=== PATIENT | female | born 1995 | race Caucasian/White ===

== ENCOUNTER 2020-08-21 13:05 | Outpatient (CLI) | payer BC ==
[2020-08-21 14:52] VITALS: BP 118/81; PULSE 93; RESP 16; TEMP 98.2
--- NOTE | 2020-08-21 15:06 | US ---
EXAMINATION TYPE: US OB >= 14 wk fetus DATE OF EXAM: 08/21/2020 COMPARISON: None CLINICAL HISTORY: EFW and MINOO post dates TECHNIQUE: OBTA GESTATIONAL AGE / DATING Physician Established: (40 weeks/2 days) EDC: 08/19/2020 Dates by LMP: unknown Dates by First Scan: [facility] here Dates by Current Scan: (38 weeks/1 days) EDC: 09/03/2020 SURVEY IUP: Single PLACENTA: Fundal PREVIA: No Previa MINOO: 18.1 cm Normal CERVICAL LENGTH (transabdominal: norm > 3.0cm): unable to visualize without distended bladder and low lying head BIOMETRY PRESENTATION: Vertex LIE: Longitudinal BPD: 9.3 cm 37 weeks / 4 days HC: 33.2 cm 37 weeks / 6 days AC: 35.2 cm 39 weeks / 1 days FL: 7.6 cm 39 weeks / 0 days ESTIMATED WEIGHT IN GRAMS: 3582 grams ESTIMATED WEIGHT IN LBS/OZ: 7 lbs. 14 oz. WEIGHT PERCENTAGE BASED ON ESTABLISHED DATES: 42% HC/AC: 0.9 Normal FL/AC: 21.7 Normal HEART RATE: 150 bpm RHYTHM: Normal IMPRESSION: Limited scan. Estimated weight 3582 g, amniotic fluid index measured at 18.1 cm
--- NOTE | 2020-08-23 18:06 | P.MSEPDOC ---
Presenting Problems - Arrival Data Date of Arrival on Unit: 08/21/20 Time of Arrival on Unit: 13:05 Mode of Transport: Stretcher - Complaint OB-Reason for Admission/Chief Complaint: NST, Observation/Evaluation Medical History - Information : 1 Para: 0 Term: 0 : 0 Abortions: Spontaneous or Elective: 0 Number of Living Children: 0 - Gestational Age Gestational Age by MICHAEL (wks/days): 40 Weeks and 2 Days Review of Systems - Review of Systems Constitutional: No problems Breast: No problems ENT: No problems Cardiovascular: No problems Respiratory: No problems Gastrointestinal: No problems Genitourinary: No problems Musculoskeletal: No problems Neurological: No problems Skin: No problems Vital Signs - Temperature Temperature: 98.2 F Temperature Source: Temporal Artery Scan - Pulse Right Sitting Brachial Pulse Rate: 93 - Respirations Respiratory Rate: 16 - Blood Pressure Right Arm Blood Pressure: 118/81 Blood Pressure Mean: 93 Blood Pressure Source: Automatic Cuff Medical Screen Scoring (Pre) - Cervical Exam Dilation: Exam Deferred Effacement: Exam Deferred Membranes: Intact - Uterine Contractions Frequency: N/A Duration: N/A Intensity: N/A - Maternal Vital Signs Maternal Temperature: N/A Maternal Blood Pressure: N/A Signs of Preeclampsia: N/A Maternal Respirations: N/A - Maternal Trauma Maternal Trauma: N/A - Assessment - Baby A Baseline FHR: 135 Heart Rate - NICHD Category: Category I (Normal) = 0 NST: Reactive Position: N/A Station: N/A - Total Score - Baby A Total Score - Baby A: 0 - Total Score - Baby B Total Score - Baby B: 0 - Total Score - Baby C Total Score - Baby C: 0 - Level of Risk - Baby A Level of Risk - Baby A: Low (0-5) - Level of Risk - Baby B Level of Risk - Baby B: Low (0-5) - Level of Risk - Baby C Level of Risk - Baby C: Low (0-5) Physician Notification (Pre) - Physician Notified Physician Notified Date: 08/21/20 Physician Notified Time: 14:05 New Order Received: No Disposition - Disposition OB Disposition: Discharge to home, Written follow up instructions reviewed Discharge Date: 08/21/20 Discharge Time: 14:45 I agree with the RN Medical Screening Exam: Yes Case reviewed; plan agreed upon as documented in EMR&OBIX.: Yes Diagnosis: POST-TERM (Ultrasound and NST are reassuring. Follow-up for scheduled induction.)
== END 2020-08-21 14:45 | disposition home or self-care (01) ==
LOC: FBPOP 13:05
PROVIDERS: ATTEND Obstetrics & Gynecology
DX: O48.0 Post-term pregnancy (principal); Z3A.40 40 weeks gestation of pregnancy
CPT/HCPCS: 59025; 76805

== ENCOUNTER 2020-08-23 06:00 | Inpatient (IN) | payer BC ==
--- NOTE | 2020-08-23 06:08 | P.HPOB ---
History of Present Illness H&P Date: 08/23/20 Chief Complaint: Requested induction of labor This patient is a 24-year-old 1 para 0 female estimated date of confinement 08/19/2020 estimated gestational age 40-4/7 weeks gestation who is admitted to labor and delivery for postdates induction of labor. Patient's pr enatal care is complicated by late to seek care. Patient is living in [place] and had her first visit at approximately 31 weeks. Patient that time did not know she was went to [facility] to get an IUD placed and was told she was approximately 31 weeks . Patient subsequently transferred to [place] at about 35 weeks. otherwise been uncomplicated. Review of Systems Genitourinary: Reports Menstruation: Reports amenorrhea Past Medical History Past Medical History: No Reported History Past Surgical History: No Surgical Hx Reported Past Anesthesia/Blood Transfusion Reactions: No Reported Reaction Past Psychological History: No Psychological Hx Reported Smoking Status: Never smoker Past Alcohol Use History: None Reported Past Drug Use History: None Reported Medications and Allergies Home Medications Medication Instructions Recorded Confirmed Type Pnv No.95/Ferrous Fum/Folic AC 1 tab PO DAILY 08/21/20 08/21/20 History [ Multivitamin Tablet] Allergies Allergy/AdvReac Type Severity Reaction Status Date / Time No Known Allergies Allergy Verified 08/21/20 13:17 Exam - OBG Physical Exam Abdomen: bowel sounds normal, no diffuse tenderness, no bruit present, no guarding noted, no hepatomegaly, no splenomegaly, no mass Vulva: both: normal Vagina: normal moisture Cervix: no lesion (Cervix is 2 cm on effaced in the office.), no discharge Uterus: enlarged (Fundal height 38 cm) Results blood work shows she is A positive, rubella immune, RPR nonreactive, hepatitis B negative, cystic fibrosis screen was negative, group B strep was negative, Glucola was normal, most recent ultrasound put estimated weight of 7 lbs. 14 oz. Assessment and Plan Assessment: This is a 24-year-old 1 para 0 female 40-4/7 weeks gestation who is admitted to labor and delivery for induction of labor secondary to postdates . Plan is induction of labor and anticipate vaginal delivery. (1) Postmaturity , 40-42 weeks gestation Status: Acute Code(s): O48.0 - POST-TERM SNOMED Code(s): 63425190697970
[2020-08-23] MEDS ORDERED: CARBOPROST TROMETHAMINE 250 MCG/ML 1 ML AMP IM PRN (06:45)
[2020-08-23] MEDS ORDERED: OXYTOCIN 10 UNIT/ML 1 ML VIAL IM PRN (06:45)
[2020-08-23] MEDS ORDERED: LIDOCAINE 0.5% (PF) 5 MG/ML (50 ML SDV) SQ PRN (06:45)
[2020-08-23] MEDS ORDERED: OXYTOCIN 30 UNITS/500 ML NS 30 UNIT in SALINE 1 500ML.BAG IV SCH ×2 (06:45→12:45)
[2020-08-23] MEDS ORDERED: TERBUTALINE 1 MG/ML VIAL SQ PRN (06:45)
[2020-08-23] MEDS ORDERED: METHYLERGONOVINE 0.2 MG/ML 1 ML AMP IM PRN (06:45)
[2020-08-23] MEDS: LACTATED RINGERS 1,000 ML IV SCH ×5 (06:55→21:16)
[2020-08-23 07:19] LABS: Basophils % (A) 0 %; Eosinophils # (A) 0.1 k/uL (0-0.7); Eosinophils % (A) 2 %; HCT 36.1 % (34.0-46.0); HGB 12.1 gm/dL (11.4-16.0); Lymphocytes % (A) 22 %; MCH 28.2 pg (25.0-35.0); MCHC 33.5 g/dL (31.0-37.0); Mean Platelet Volume 9.7; Monocytes # (A) 0.3 k/uL (0-1.0); Monocytes % (A) 4 %; Neutrophils # (A) 6.4 k/uL (1.3-7.7); Neutrophils % (A) 71 %; Platelet Count 214 k/uL (150-450); RDW 14.7 % (11.5-15.5)
[2020-08-23] MEDS ORDERED: fentaNYL (PF) 50 MCG/ML 5 ML AMP ONE (09:36)
[2020-08-23] MEDS ORDERED: ROPIVACAINE 5MG/ML 20ML VIAL ONE (09:36)
[2020-08-23] MEDS ORDERED: SODIUM CHLORIDE 0.9% 100 ML BAG ONE (09:36)
[2020-08-23] MEDS ORDERED: CITRIC ACID-SODIUM CITRATE 15 ML CUP PO ONE (11:46)
[2020-08-23] MEDS ORDERED: ONDANSETRON 4 MG/2 ML VIAL ONE (11:58)
[2020-08-23] MEDS ORDERED: ACETAMINOPHEN IV (For NPO) 1,000 MG/100 ML VIAL ONE (11:58)
[2020-08-23] MEDS ORDERED: KETOROLAC 15 MG/ML 1 ML VIAL ONE (11:58)
[2020-08-23] MEDS ORDERED: OXYTOCIN 10 UNIT/ML 1 ML VIAL ONE (11:58)
[2020-08-23] MEDS ORDERED: MORPHINE SULFATE (PF) 0.3 MG/0.3 ML SYR ONE (11:58)
[2020-08-23] MEDS ORDERED: DEXAMETHASONE SOD PHOSPHATE 10 MG/ML 1 ML VIAL ONE (11:58)
[2020-08-23] MEDS ORDERED: METOCLOPRAMIDE 5 MG/ML 2 ML VIAL IVP PRN (12:35)
[2020-08-23] MEDS ORDERED: NALOXONE 0.4 MG/ML 1 ML VIAL IV PRN (12:35)
[2020-08-23] MEDS ORDERED: LANOLIN CREAM 5 GM TUBE TOPICAL PRN (12:35)
[2020-08-23] MEDS ORDERED: diphenhydrAMINE 50 MG/ML 1 ML VIAL IVP PRN (12:35)
[2020-08-23] MEDS ORDERED: ZOLPIDEM 5 MG TAB PO PRN (12:35)
[2020-08-23] MEDS ORDERED: SIMETHICONE 80 MG CHEWABLE PO PRN (12:35)
[2020-08-23] MEDS ORDERED: ONDANSETRON 4 MG/2 ML VIAL IVP PRN (12:35)
[2020-08-23] MEDS ORDERED: diphenhydrAMINE 25 MG CAP PO PRN (12:35)
--- NOTE | 2020-08-23 12:46 | P.OP ---
Date of Procedure: 08/23/20 Preoperative Diagnosis: #1: 40-4/7 week intrauterine . #2: Nonreassuring heart tones remote from delivery. Postoperative Diagnosis: #1: Same. #2: Os with posterior presentation. #3: Nuchal cord 1 Procedure(s) Performed: Primary low transverse section Anesthesia: epidural Surgeon: Stevie Gordon Tank Car Loader #1: Marito Parmar Estimated Blood Loss (ml): 500 Pathology: other (Placenta) Condition: stable Disposition: floor Indications for Procedure: Please see dictated H&P for intimate details of this patient's admission. In brief summary this is a pleasant 24-year-old 1 para 0 female 40-4/7 weeks gestation initially admitted for induction of labor found to be in early labor. On admission patient's 4 cm dilated has artificial rupture membranes for her fluid. Patient's labor is augmented with Pitocin. She progresses and at 6 cm she does receive an epidural for pain control. Patient thereafter does have some bradycardia which resolved with position changes and, discontinuing the Pitocin in the usual resuscitative measures. Patient progresses to about 7-8 cm and unfortunately continues to have repetitive variable decelerations and another episode of bradycardia to the 90s for about 4 minutes. At that time I recommend she proceed with immediate section. Patient understands this surgery and risks and risks of infection, bleeding, possible injury to bowel, bladder, vessels, and/or other organs. All the patient's questions are answered written consent is obtained. Operative Findings: This is a vigorous viable male Apgars 8 and 9 delivery time was 1205 hrs. Infant was straight occiput posterior presentation nuchal cord 1 Description of Procedure: This patient has a Bruce catheter placed to straight drain. She is quickly taken to the operating room where the epidural is dosed up and a sufficient level surgery. She has abdominal prep and drape at that time. Scalpels and taken Pfannenstiel skin incision is then made. A second scalpel is taken down the fascia and the fascia scored with a knife. Fascial incision extended bilaterally using the Amaral scissors. Fascia is dissected off the rectus muscles. Rectus muscles are the peritoneum was identified and entered sharply. Peritoneal incision extended superior and inferior without difficulty. Bladder blade is then placed. Scalpels and taken and a low transverse uterine incision is made there is loss of clear fluid. This incision extended bluntly. Infant was guided through the incision with fundal pressure. Straight occiput posterior presentation. Mouth and nares are bulb suctioned. There is a nuchal cord 1 which is reduced. With good fundal pressure we then have deliver the rest of this infant's body this is a vigorous viable male infant Apgars are 8 and 9 delivery time is 1205 hrs. After delivery of the the umbilical cord is doubly clamped and cut appears to be trivascular. Placenta is then manually extracted intact. Uterus is then externalized and uterine incision is then demarcated with Butt clamps. Uterine incision closed in 0 Vicryl running locked fashion 2 layers. Excellent hemostasis is noted bladder perito neum was then reapproximated using a 3-0 Vicryl. Excess fluid is removed from the abdomen and pelvis. Uterus, tubes, ovaries appear normal for term gestation. The parietal peritoneum was identified and closed using 0 Vicryl running fashion. Rectus muscles are reapproximated in 0 Vicryl interrupted fashion. Fascial incision is then closed using 0 PDS. Fascial incision is intact and hemostatic. Subcutaneous tissues and closed using a 3-0 Vicryl. Skin is and closed using clarita. All counts are correct 3. There are no complications. Infant and mother are taken to the birthing suite in satisfactory condition.
[2020-08-23] MEDS: ACETAMINOPHEN TAB 500 MG TAB PO PRN ×2 (17:23→23:56)
[2020-08-23] MEDS: KETOROLAC 15 MG/ML 1 ML VIAL IVP PRN (18:11)
[2020-08-23] MEDS: SENNOSIDES-DOCUSATE SODIUM 1 EACH TAB PO SCH (21:26)
[2020-08-24] MEDS: KETOROLAC 15 MG/ML 1 ML VIAL IVP PRN ×2 (04:47→11:55)
[2020-08-24 06:13] LABS: Basophils % (A) 0 %; Eosinophils % (A) 0 %; HCT 31.3 % (34.0-46.0); Lymphocytes # (A) 1.4 k/uL (1.0-4.8); Lymphocytes % (A) 12 %; MCH 26.8 pg (25.0-35.0); MCHC 31.7 g/dL (31.0-37.0); MCV 84.6 fL (80.0-100.0); Mean Platelet Volume 11.3; Monocytes # (A) 0.4 k/uL (0-1.0); Monocytes % (A) 4 %; Neutrophils % (A) 83 %; Platelet Count 175 k/uL (150-450); WBC 10.9 k/uL (3.8-10.6)
[2020-08-24 06:14] LABS: HGB 9.9 gm/dL (11.4-16.0)
--- NOTE | 2020-08-24 06:23 | P.PNOBGPC ---
Subjective - Subjective Patient reports: Reports appetite normal, Reports voiding normally, Reports pain well controlled, Reports ambulating normally : doing well Objective - Vital Signs Latest vital signs: Vital Signs Temp Pulse Resp BP Pulse Ox 08/24/20 05:03 98.0 F 69 18 103/57 97 08/23/20 23:50 97.7 F 62 16 119/70 99 08/23/20 20:10 97.7 F 66 16 103/64 97 08/23/20 16:00 98.0 F 63 16 106/66 08/23/20 14:31 63 16 119/68 97 08/23/20 14:01 68 16 113/75 97 08/23/20 12:46 78 16 122/58 99 08/23/20 12:35 99 08/23/20 12:31 96.9 F L 83 16 117/56 96 08/23/20 06:46 98.6 F 76 14 127/84 100 Intake and Output 08/23/20 08/23/20 08/24/20 14:59 22:59 06:59 Intake Total 3000 Output Total 780 1200 1000 Balance 2220 -1200 -1000 Intake: IV 3000 Output: Urine 1200 1000 Uretheral (Bruce) 1200 Estimated Blood Loss 780 Other: Voiding Method Indwelling Catheter Indwelling Catheter # Voids 1 - Exam Lungs: bilateral: normal Chest: Normal S1, Normal S2 Extremities: Present: normal Abdomen: Present: normal appearance, soft. Absent: distention, tenderness Incision: Present: normal, dry, intact Uterus: Present: normal, firm - Labs Labs: Abnormal Lab Results - Last 24 Hours (Table) 08/24/20 Range/Units 05:36 WBC 10.9 H (3.8-10.6) k/uL RBC 3.70 L (3.80-5.40) m/uL Hgb 9.9 L D (11.4-16.0) gm/dL Hct 31.3 L (34.0-46.0) % Neutrophils # 9.0 H (1.3-7.7) k/uL Assessment and Plan Assessment: Postoperative day #1. Patient is resting without complaints. Vital signs are stable and she is afebrile. Uterus is firm nontender and her incision is intact and dry. Hemoglobin today is 9.9. Patient's tolerating clear liquids and urinating without difficulty. Plan is to continue ambulation, allow the patient to shower, and advance regular diet. (1) Postmaturity , 40-42 weeks gestation Current Visit: No Status: Acute Code(s): O48.0 - POST-TERM [facility] [place] [facility] Code(s): 16843556056633
[2020-08-24] MEDS: LACTATED RINGERS 1,000 ML IV SCH (06:58)
[2020-08-24] MEDS: SENNOSIDES-DOCUSATE SODIUM 1 EACH TAB PO SCH ×2 (07:32→20:54)
--- NOTE | 2020-08-24 07:49 | P.PN ---
Progress Note - Text Progress Note Date: 08/24/20 (916) Anesthesia Postop day 1 Subjective: Status Post section with Duramorph. Patient seen and examined. Doing well without complaint. VAS 2 out of 10. On nausea, vomiting, or pruritus. Afebrile. Gross lower extremity strength intact. . Without apparent anesthetic complications. Objective: Vital signs reviewed Heart: Regular Rate Lungs: Good chest excursion Abdomen: Appears nondistended Assessment: Status post with Duramorph postop day 1 Plan: Continue current care with your medical management.
[2020-08-24 08:22] VITALS: RESP 16
[2020-08-24] MEDS: ACETAMINOPHEN TAB 500 MG TAB PO PRN ×3 (10:25→23:37)
[2020-08-24] MEDS: IBUPROFEN 600 MG TAB PO PRN (18:12)
[2020-08-25 00:22] VITALS: PULSE 86
[2020-08-25] MEDS: IBUPROFEN 600 MG TAB PO PRN ×2 (02:33→08:39)
[2020-08-25] MEDS: ACETAMINOPHEN TAB 500 MG TAB PO PRN (05:31)
--- NOTE | 2020-08-25 06:00 | P.PNOBGPC ---
Subjective - Subjective Patient reports: Reports appetite normal, Reports voiding normally, Reports pain well controlled, Reports ambulating normally : doing well Objective - Vital Signs Latest vital signs: Vital Signs Temp Pulse Resp BP Pulse Ox 08/25/20 00:00 97.8 F 86 16 113/72 98 08/24/20 20:00 98.3 F 82 16 110/70 100 08/24/20 16:00 98.1 F 78 16 109/71 96 08/24/20 12:00 97.7 F 85 16 114/71 99 08/24/20 08:00 98.3 F 76 16 102/58 97 Intake and Output 08/24/20 08/24/20 08/25/20 14:59 22:59 06:59 Intake Total 500 Balance 500 Intake: Oral 500 Other: Voiding Method Indwelling Catheter # Voids 4 1 1 - Exam Lungs: bilateral: normal Chest: Normal S1, Normal S2 Extremities: Present: normal Abdomen: Present: normal appearance, soft. Absent: distention, tenderness Incision: Present: normal, dry, intact Uterus: Present: normal, firm - Labs Labs: Abnormal Lab Results - Last 24 Hours (Table) 08/24/20 Range/Units 05:36 WBC 10.9 H (3.8-10.6) k/uL RBC 3.70 L (3.80-5.40) m/uL Hgb 9.9 L D (11.4-16.0) gm/dL Hct 31.3 L (34.0-46.0) % Neutrophils # 9.0 H (1.3-7.7) k/uL Assessment and Plan Assessment: Postoperative day #2. Patient is resting without complaints wishes to go home. Vital signs are stable she is afebrile. Uterus is firm nontender and her incision is intact and dry. My impression is a normal post operative course. Plan is to continue routine postoperative care and discharge home later today (1) Postmaturity , 40-42 weeks gestation Current Visit: No Status: Acute Code(s): O48.0 - POST-TERM SNOMED Code(s): 00078742608374
--- NOTE | 2020-08-25 06:10 | P.DS ---
Providers Date of admission: 08/23/20 06:33 Expected date of discharge: 08/25/20 Attending physician: Stevie Gordon Primary care physician: Stated None - Discharge Diagnosis(es) (1) Postmaturity , 40-42 weeks gestation Current Visit: No Status: Acute Hospital Course: Please see dictated H&P for intimate details of this patient's admission. Brief summary this is a 24-year-old 1 para 0 female 40-4/7 weeks gestation admitted to labor and delivery for induction of labor section and found to be in active labor. Patient's subsequent was on have a primary low transverse section for nonreassuring heart tones and nuchal cord. Please see dictated operative note. Postoperative and 2 patient is doing well felt to be stable for discharge home follow up with me in 1 week. Procedures: Primary low transverse section Patient Condition at Discharge: Good Plan - Discharge Summary New Discharge Prescriptions: New Ibuprofen [Motrin] 600 mg PO Q6H PRN #30 tab PRN Reason: Pain oxyCODONE HCL [OxyIR] 5 mg PO Q4HR PRN #18 tab PRN Reason: Pain Scale 4 - 6 No Action Pnv No.95/Ferrous Fum/Folic AC [ Multivitamin Tablet] 1 tab PO DAILY Discharge Medication List Pnv No.95/Ferrous Fum/Folic AC [ Multivitamin Tablet] 1 tab PO DAILY 08/21/20 [History] Ibuprofen [Motrin] 600 mg PO Q6H PRN #30 tab 08/25/20 [Rx] oxyCODONE HCL [OxyIR] 5 mg PO Q4HR PRN #18 tab 08/25/20 [Rx] Follow up Appointment(s)/Referral(s): Stevie Gordon MD [STAFF PHYSICIAN] - 10/03/20 11:15 am (Please see me in 1 week for an incision check as well.) Patient Instructions/Handouts: (DC) Activity/Diet/Wound Care/Special Instructions: No strenuous activity or heavy lifting for 6 weeks. No intercourse or anything per vagina for 6 weeks. Please call if any fever, chills, excessive vaginal bleeding, and/or abdominal pain. Discharge Disposition: HOME SELF-CARE
[2020-08-25] MEDS: SENNOSIDES-DOCUSATE SODIUM 1 EACH TAB PO SCH (08:39)
[2020-08-25 08:43] VITALS: BP 107/69; TEMP 97.6
== END 2020-08-25 14:45 | disposition home or self-care (01) | DRG 788 ==
LOC: 4FBP 06:33
PROVIDERS: ADMIT Obstetrics & Gynecology; ATTEND Obstetrics & Gynecology
PROC: 10D00Z1 Extraction of Products of Conception, Low, Open Approach (ICD-10-PCS; principal; 2020-08-23 06:00)
DX: O48.0 Post-term pregnancy (principal); L29.9 Pruritus, unspecified; O69.81X0 Labor and delivery complicated by cord around neck, without compression, not applicable or unspecified; O76 Abnormality in fetal heart rate and rhythm complicating labor and delivery; Z37.0 Single live birth; Z3A.40 40 weeks gestation of pregnancy
CPT/HCPCS: 85025; 86850; 86900; 86901; 88307

== ENCOUNTER 2022-06-14 13:06 | Inpatient (IN) | payer BC ==
--- NOTE | 2022-06-18 07:55 | P.HPOB ---
History of Present Illness H&P Date: 06/18/22 Chief Complaint: Postdates induction, desires This patient is a pleasant 26 yr female EDC 06/14/2022 estimated gestational age 40 5/7 weeks who presents to L&D for postdates induction of labor. Patient had a previous section for non-reassuring FHTs/OP presentation and desires trial of . care has been uncomplicated otherwise. Review of Systems Genitourinary: Reports Menstruation: Reports amenorrhea Past Medical History Past Medical History: No Reported History Additional Past Medical History / Comment(s): 1st had CS at 7 cm for NR FHT, OP and nuchal cord. History of Any Multi-Drug Resistant Organisms: None Reported Past Surgical History: Section Past Anesthesia/Blood Transfusion Reactions: No Reported Reaction Past Psychological History: Anxiety, Depression Additional Psychological History / Comment(s): not medicated, resolved at this time Smoking Status: Never smoker Past Alcohol Use History: None Reported Past Drug Use History: None Reported - Past Family History Mother Family Medical History: No Reported History Medications and Allergies Home Medications Medication Instructions Recorded Confirmed Type Pnv No.95/Ferrous Fum/Folic AC 1 tab PO DAILY 08/21/20 08/23/20 History [ Multivitamin Tablet] Ibuprofen [Motrin] 600 mg PO Q6H PRN #30 tab 08/25/20 Rx oxyCODONE HCL [OxyIR] 5 mg PO Q4HR PRN #18 tab 08/25/20 Rx Allergies Allergy/AdvReac Type Severity Reaction Status Date / Time No Known Allergies Allergy Verified 08/23/20 06:45 Exam - OBG Physical Exam Abdomen: bowel sounds normal, no diffuse tenderness, no bruit present, no guarding noted, no hepatomegaly, no splenomegaly, no mass Vulva: both: normal Vagina: normal moisture, no discharge Cervix: no lesion (Cervix in the office was 2cm.), no discharge Results Labs: A positive, Rubella Immune, YSO-OrpX-PVS neg, Toxo neg, GBS was negative. Ultrasound at 35 wks showed EFW 6#5oz (75-90%) normal. Glucola 96. Received Tdap 05/30/2022. Assessment and Plan Assessment: This is a pleasant 26 yr female estimated gestational age 40 5/7 weeks who presents to L&D for requested induction of labor. She has had a previous section and has requested trial of this . We have discussed the benefits and risks of this in detail, including the risks of uterine rupture, bleeding, possible maternal/ compromise and she wishes to proceed. Plan is AROM and Pitocin induction of labor per protocol. (1) Previous delivery affecting Status: Acute Code(s): O34.219 - MATERNAL CARE FOR UNSP TYPE SCAR FROM PREVIOUS DEL SNOMED Code(s): 338503706 (2) Elective induction of labor planned Status: Acute Code(s): UUS8384 - SNOMED Code(s): 837000077 (3) Postmaturity , 40-42 weeks gestation Status: Acute Code(s): O48.0 - POST-TERM SNOMED Code(s): 98223248676091
[2022-06-19] MEDS ORDERED: METHYLERGONOVINE 0.2 MG/ML 1 ML AMP IM PRN (06:33)
[2022-06-19] MEDS ORDERED: LIDOCAINE 0.5% (PF) 5 MG/ML (50 ML SDV) SQ PRN (06:33)
[2022-06-19] MEDS ORDERED: OXYTOCIN 10 UNIT/ML 1 ML VIAL IM PRN (06:33)
[2022-06-19] MEDS ORDERED: TERBUTALINE 1 MG/ML VIAL SQ PRN (06:33)
[2022-06-19] MEDS ORDERED: OXYTOCIN 30 UNITS/500 ML NS 30 UNIT in SALINE 1 500ML.BAG IV SCH (06:33)
[2022-06-19] MEDS: LACTATED RINGERS 1,000 ML IV SCH ×3 (06:38→15:31)
[2022-06-19 07:12] LABS: Anisocytosis Slight; Basophils % (A) 1 %; Eosinophils # (A) 0.2 k/uL (0-0.7); Eosinophils % (A) 2 %; HCT 40.6 % (34.0-46.0); HGB 13.2 gm/dL (11.4-16.0); Lymphocytes # (A) 2.2 k/uL (1.0-4.8); Lymphocytes % (A) 25 %; MCH 28.3 pg (25.0-35.0); MCHC 32.6 g/dL (31.0-37.0); MCV 86.9 fL (80.0-100.0); Mean Platelet Volume 9.7; Monocytes # (A) 0.4 k/uL (0-1.0); Monocytes % (A) 4 %; Neutrophils # (A) 5.8 k/uL (1.3-7.7); Neutrophils % (A) 67 %; Platelet Count 224 k/uL (150-450); RBC 4.67 m/uL (3.80-5.40); RDW 16.8 % (11.5-15.5); WBC 8.7 k/uL (3.8-10.6)
[2022-06-19] MEDS ORDERED: diphenhydrAMINE 25 MG CAP PO PRN (17:56)
[2022-06-19] MEDS ORDERED: ZOLPIDEM 5 MG TAB PO PRN (17:56)
[2022-06-19] MEDS ORDERED: diphenhydrAMINE 50 MG CAP PO PRN (17:56)
[2022-06-19] MEDS ORDERED: diphenhydrAMINE 50 MG/ML 1 ML VIAL IVP PRN ×2 (17:56)
[2022-06-19] MEDS ORDERED: SIMETHICONE 80 MG CHEWABLE PO PRN (17:56)
[2022-06-19] MEDS ORDERED: BENZOCAINE/MENTHOL SPRAY 1 GM/SPRAY AEROSOL TOPICAL PRN (17:56)
[2022-06-19] MEDS ORDERED: LANOLIN CREAM 5 GM TUBE TOPICAL PRN (17:56)
[2022-06-19] MEDS ORDERED: HYDROCORTISONE 2.5% RECTAL CREAM 30 GM TUBE RECTAL PRN (17:56)
[2022-06-19] MEDS: IBUPROFEN 600 MG TAB PO PRN (18:48)
--- NOTE | 2022-06-19 18:51 | P.PROBDLV ---
Vaginal Delivery Note - . Vaginal Delivery Note: Normal vaginal delivery (vaginal after ) of a viable female infant Apgars 9 and 9. Please see dictated H&P for intimate details of this patient's admission. In brief summary this is a pleasant 26-year-old 2 para 1 female estimated gestational age 40-5/7 weeks who presents to labor and delivery requesting trial of . Patient's first resulted in a section secondary to nonreassuring heart tones. On admission patient is approximately 2 cm dilated. She is artificial rupture membranes for clear fluid. Labor is induced with Pitocin per protocol. She does get uncomfortable and does request an epidural for pain control. Patient's labor progresses adequately and she gets to complete. Patient gets complete at around 1534 hrs. Patient pushes for approximately 1 hour. She pushes the head to the perineum. Perineum is quite edematous. I support the posterior perineum and we have controlled delivery of the 's head over the intact perineum. 's head is right occiput anterior presentation. At this time there is evidence of a "turtle sign" and the head is flush to the perineum. Mouth and nares are bulb suctioned. There is no evidence of a nuchal cord. Due to concern for shoulder dystocia, patient is placed intimate Oneil positions/maneuver. She is instructed to breathe at this time. The shoulder does not release. At this time we did call for help and the nurse begans suprapubic pressure. Patient again was instructed to breathe during this time. After multiple attempts with suprapubic pressure, the anterior shoulder does release. This facilitates the posterior shoulder as well and it is rotated in a clockwise fashion. This does achieve delivery atraumatically. Total time of the shoulder dystocia is estimated 2 minutes. This is a vigorous viable female infant Apgars were 9 and 9 delivery time was 1635 hrs. has spontaneous respiration and good cry and grossly appears normal. The umbilical cord was immediately clamped and cut and the infant is then taken over to the warmer for assessment. Inspection of the 's upper extremities shows no defects or deficits and excellent/normal grasp. There is also no evidence of clavicle fracture. After delivery of the infant, the placenta spontaneously delivered intact. Inspection of the perineum shows a to be quite edematous there is a second-degree laceration without extension. Using a 3-0 Vicryl the second-degree lacerations repaired as best as possible in a running fashion. Excellent reapproximation is noted. Bleeding appears normal as well. All counts are correct 3. Delivery is complicated by a shoulder dystocia (as above) without sequela, otherwise no complications. Patient and family were counseled that if she had future delivery she would need a section for delivery.
[2022-06-19] MEDS: SENNOSIDES-DOCUSATE SODIUM 1 EACH TAB PO SCH (20:32)
[2022-06-19] MEDS: ACETAMINOPHEN TAB 325 MG TAB PO PRN (20:33)
[2022-06-20] MEDS: IBUPROFEN 600 MG TAB PO PRN ×4 (01:21→21:01)
[2022-06-20] MEDS: ACETAMINOPHEN TAB 325 MG TAB PO PRN ×3 (03:39→18:23)
--- NOTE | 2022-06-20 05:49 | P.PNOBGVD ---
Subjective - Subjective Patient reports: Reports appetite normal, Reports voiding normally, Reports pain well controlled, Reports ambulating normally : doing well Objective - Latest Vital Signs Latest vital signs: Vital Signs Temp Pulse Resp BP Pulse Ox 06/20/22 04:00 98.3 F 77 14 95/53 96 06/20/22 00:00 98 F 103 H 16 107/66 97 06/19/22 19:06 98.1 F 92 16 121/73 06/19/22 18:36 129 H 16 108/76 06/19/22 18:06 96 16 106/70 06/19/22 17:51 121 H 16 112/76 06/19/22 17:36 98.5 F 113 H 16 113/69 06/19/22 17:21 118 H 16 106/61 06/19/22 17:06 98.5 F 122 H 16 121/67 99 06/19/22 06:32 97.3 F L 109 H 17 121/86 100 Intake and Output 06/19/22 06/19/22 06/20/22 14:59 22:59 06:59 Intake Total 1187.0 Output Total 750 Balance 437.0 Intake: IV 1000 Invasive Line 1 1000 Intake, IV Titration 187.0 Amount Oxytocin 30 Units/500 ml 187.0 Ns 30 unit In Saline 1 500ml.bag @ Per Protocol IV .Q0M [facility] Rx#:[id number] Output: Estimated Blood Loss 200 Output, Quantitative 550 Blood Loss Other: # Voids 1 1 - Exam Lungs: bilateral: normal Chest: Normal S1, Normal S2 Extremities: Present: normal Abdomen: Present: normal appearance, soft Uterus: Present: normal, firm - Labs Labs: Abnormal Lab Results - Last 24 Hours (Table) 06/19/22 Range/Units 06:33 RDW 16.8 H (11.5-15.5) % Assessment and Plan Assessment: day #1. Patient is doing well with had 2 episodes where she was lightheaded getting up to shower. Vital signs are stable she is afebrile. Uterus is firm nontender and she is having normal lochia. I examined her bottom and it is much less swelling. Baby is doing well. Plan today is to continue routine care, we'll check a CBC, and evaluated for discharge tomorrow. I did ask her to stay today to watch her closely until then. (1) Previous delivery affecting Current Visit: No Status: Acute Code(s): O34.219 - MATERNAL CARE FOR UNSP TYPE SCAR FROM PREVIOUS DEL SNOMED Code(s): 508149060 (2) Elective induction of labor planned Current Visit: No Status: Acute Code(s): DPL8768 - SNOMED Code(s): 295774638 (3) Postmaturity , 40-42 weeks gestation Current Visit: No Status: Acute Code(s): O48.0 - POST-TERM SNOMED Code(s): 06395506550592
[2022-06-20 06:28] LABS: Anisocytosis Slight; Basophils % (A) 0 %; Eosinophils # (A) 0.1 k/uL (0-0.7); Eosinophils % (A) 1 %; Lymphocytes # (A) 1.9 k/uL (1.0-4.8); Lymphocytes % (A) 14 %; MCH 27.9 pg (25.0-35.0); MCHC 31.9 g/dL (31.0-37.0); MCV 87.5 fL (80.0-100.0); Mean Platelet Volume 9.8; Monocytes # (A) 0.6 k/uL (0-1.0); Monocytes % (A) 4 %; Neutrophils # (A) 10.6 k/uL (1.3-7.7); Neutrophils % (A) 79 %; Platelet Count 208 k/uL (150-450); RBC 3.66 m/uL (3.80-5.40); WBC 13.4 k/uL (3.8-10.6)
[2022-06-20 06:50] LABS: HGB 10.2 gm/dL (11.4-16.0)
[2022-06-20] MEDS: SENNOSIDES-DOCUSATE SODIUM 1 EACH TAB PO SCH ×2 (08:54→20:55)
[2022-06-21] MEDS: ACETAMINOPHEN TAB 325 MG TAB PO PRN (01:33)
[2022-06-21 02:15] VITALS: RESP 16
[2022-06-21] MEDS: IBUPROFEN 600 MG TAB PO PRN (06:13)
--- NOTE | 2022-06-21 06:46 | P.PNOBGVD ---
Subjective - Subjective Patient reports: Reports appetite normal, Reports voiding normally, Reports pain well controlled, Reports ambulating normally : doing well Objective - Latest Vital Signs Latest vital signs: Vital Signs Temp Pulse Resp BP 06/21/22 00:00 97.7 F 96 16 110/71 06/20/22 20:00 98.2 F 91 20 109/63 06/20/22 15:00 98.2 F 99 20 117/66 06/20/22 12:00 98.2 F 98 20 117/66 06/20/22 08:00 97.9 F 100 20 109/64 Intake and Output 06/20/22 06/20/22 06/21/22 14:59 22:59 06:59 Intake Total 300 Balance 300 Intake: Oral 300 Other: # Voids 1 1 1 - Exam Lungs: bilateral: normal Chest: Normal S1, Normal S2 Extremities: Present: normal Abdomen: Present: normal appearance, soft Uterus: Present: normal, firm - Labs Labs: Abnormal Lab Results - Last 24 Hours (Table) 06/20/22 Range/Units 06:11 WBC 13.4 H (3.8-10.6) k/uL RBC 3.66 L (3.80-5.40) m/uL Hgb 10.2 L D (11.4-16.0) gm/dL Hct 32.0 L (34.0-46.0) % RDW 17.0 H (11.5-15.5) % Neutrophils # 10.6 H (1.3-7.7) k/uL Assessment and Plan Assessment: day #2. Patient is resting without new complaints continues to feel well. Vital signs are stable she's afebrile. Uterus is firm nontender and she is having normal lochia. Patient is ambulating and urinating without difficulty. She states that "everything is working normally". CBC yesterday showed a hemoglobin be 10.2. Plan today is to continue routine care discharge home later today. (1) Previous delivery affecting Current Visit: No Status: Acute Code(s): O34.219 - MATERNAL CARE FOR UNSP TYPE SCAR FROM PREVIOUS DEL SNOMED Code(s): 644043751 (2) Elective induction of labor planned Current Visit: No Status: Acute Code(s): AYY1617 - SNOMED Code(s): 029155504 (3) Postmaturity , 40-42 weeks gestation Current Visit: No Status: Acute Code(s): O48.0 - POST-TERM SNOMED Code(s): 58585907722053
--- NOTE | 2022-06-21 06:52 | P.DS ---
Providers Date of admission: 06/19/22 06:22 Expected date of discharge: 06/21/22 Attending physician: Stevie Gordon Primary care physician: Stated None - Discharge Diagnosis(es) (1) Previous delivery affecting Current Visit: No Status: Acute (2) Elective induction of labor planned Current Visit: No Status: Acute (3) Postmaturity , 40-42 weeks gestation Current Visit: No Status: Acute Hospital Course: Please see dictated H&P for intimate details of this patient's admission. In brief summary this is a pleasant 26-year-old 2 para 1 female 40-5/7 weeks gestation admitted to labor and delivery for requested induction/. Patient goes on to have a vaginal after section () for viable female . Delivery is complicated by a significant shoulder dystocia. Please see dictated delivery note. There was no maternal or sequelae from this. On post day #2 patient's felt to be stable for discharge home follow up with me in 6 weeks. Procedures: Vaginal after section Patient Condition at Discharge: Good Plan - Discharge Summary New Discharge Prescriptions: New Ibuprofen [Motrin] 600 mg PO Q6HR PRN #30 tab PRN Reason: Mild Pain (Scale 1 To 3) No Action Pnv No.95/Ferrous Fum/Folic AC [ Multivitamin Tablet] 1 tab PO DAILY Discharge Medication List Pnv No.95/Ferrous Fum/Folic AC [ Multivitamin Tablet] 1 tab PO DAILY 08/21/20 [History] Ibuprofen [Motrin] 600 mg PO Q6HR PRN #30 tab 06/21/22 [Rx] Follow up Appointment(s)/Referral(s): Stevie Gordon MD [STAFF PHYSICIAN] - 07/31/22 3:30 pm Patient Instructions/Handouts: Vaginal Delivery (DC) Activity/Diet/Wound Care/Special Instructions: No intercourse or anything per vagina for 6 weeks. Please call if any fever, chills, excessive vaginal bleeding, and/or abdominal pain. Discharge Disposition: HOME SELF-CARE
[2022-06-21] MEDS: SENNOSIDES-DOCUSATE SODIUM 1 EACH TAB PO SCH (08:57)
[2022-06-21 09:05] VITALS: BP 107/65; PULSE 111; TEMP 97.8
== END 2022-06-21 11:30 | disposition home or self-care (01) | DRG 807 ==
LOC: 4FBP 06-19 06:22
PROVIDERS: ADMIT Obstetrics & Gynecology; ATTEND Obstetrics & Gynecology
PROC: 10E0XZZ Delivery of Products of Conception, External Approach (ICD-10-PCS; principal; 2022-06-19)
PROC: 10907ZC Drainage of Amniotic Fluid, Therapeutic from Products of Conception, Via Natural or Artificial Opening (ICD-10-PCS; principal; 2022-06-19)
PROC: 3E033VJ Introduction of Other Hormone into Peripheral Vein, Percutaneous Approach (ICD-10-PCS; principal; 2022-06-19)
PROC: 0KQM0ZZ Repair Perineum Muscle, Open Approach (ICD-10-PCS; principal; 2022-06-19)
DX: O48.0 Post-term pregnancy (principal); O34.219 Maternal care for unspecified type scar from previous cesarean delivery; O66.0 Obstructed labor due to shoulder dystocia; O70.1 Second degree perineal laceration during delivery; Z86.59 Personal history of other mental and behavioral disorders; Z28.310 Unvaccinated for COVID-19; Z3A.40 40 weeks gestation of pregnancy; Z37.0 Single live birth
CPT/HCPCS: 85025; 86850; 86900; 86901; 88307